=== PATIENT | female | born 1980 | race Caucasian/White ===

== ENCOUNTER 2021-12-04 21:16 | Emergency (ER) | payer OTHER ==
[2021-12-04 21:23] VITALS: BP 119/84; PULSE 120; TEMP 98.8; BMI 25.2
[2021-12-04] MEDS ORDERED: KETOROLAC TROMETHAMINE 15 MG/ML VIAL IVPUSH ONE (21:55)
[2021-12-04] MEDS ORDERED: KETOROLAC TROMETHAMINE 15 MG/ML VIAL ONE (22:13)
[2021-12-04 22:28] LABS: BASO % 0.4 % (0-2.0); HEMATOCRIT 32.1 % (32.4-45.2); HEMOGLOBIN 11.1 GM/dL (10.7-15.3); LYMPH % 12.4 % (8-40); MCH 27.8 pg (25.7-33.7); MCHC 34.5 g/dl (32.0-36.0); MEAN CELL VOLUME 80.6 fl (80-96); MEAN PLT VOLUME 8.1 fl (7.5-11.1); MONO % 7.2 % (3.8-10.2); PLATELET COUNT 171 10^3/uL (134-434); RBC 3.98 M/mm3 (3.60-5.2); RDW 13.8 % (11.6-15.6); WHITE BLOOD COUNT 3.8 K/mm3 (4.0-10.0)
[2021-12-04 22:38] LABS: EPI CELLS >36 /uL (0-25.1); HCG,QUALITATIVE URINE Negative; HYALINE CASTS 3 /uL (0-3.1); URINE APPEARANCE CLOUDY; URINE BACTERIA 1241 /uL (0-1359); URINE BILIRUBIN NEGATIVE (NEGATIVE); URINE COLOR YELLOW; URINE GLUCOSE (UA) NEGATIVE (NEGATIVE); URINE KETONE TRACE (NEGATIVE); URINE LEUK ESTERASE TRACE (NEGATIVE); URINE NITRITE NEGATIVE (NEGATIVE); URINE PROTEIN NEGATIVE (NEGATIVE); URINE RBC 17 /uL (0-23.9); URINE UROBILINOGEN 0.2 mg/dL (0.2-1.0); URINE WBC 43 /uL (0-25.8)
[2021-12-04 22:51] LABS: ALBUMIN 3.7 g/dl (3.4-5.0); BLOOD UREA NITROGEN 8.4 mg/dL (7-18); CALCIUM 8.4 mg/dL (8.5-10.1)
[2021-12-04 22:54] LABS: CREATININE 0.9 mg/dL (0.55-1.3)
[2021-12-04 22:56] LABS: BILIRUBIN,TOTAL 0.6 mg/dL (0.2-1); TOT PROT 7.8 g/dl (6.4-8.2)
[2021-12-04] MEDS ORDERED: POTASSIUM CHLORIDE TABS 20 MEQ TABLET.ER (FP) PO ONE ×2 (22:57→23:26)
== END 2021-12-05 02:07 | disposition home or self-care (01) ==
LOC: JER 21:16
PROC: 3E0333Z Introduction of Anti-inflammatory into Peripheral Vein, Percutaneous Approach (ICD-10-PCS; principal; 2021-12-04)
DX: R10.9 Unspecified abdominal pain (principal)
CPT/HCPCS: 36415; 76775-TC; 76830-TC; 80053; 81003; 84703; 85025; 93005; 93010; 96374; 99284-25

== ENCOUNTER 2022-05-05 11:11 | Emergency (ER) | payer OTHER ==
[2022-05-05 11:22] VITALS: BMI 25.7
[2022-05-05 13:17] LABS: VENOUS BASE EXCESS -1.1 mmol/L (-2-2); VENOUS O2 SATURATION 46.9 % (70-80); VENOUS PH 7.406 (7.310-7.410)
[2022-05-05 13:26] LABS: MCH 26.1 pg (25.7-33.7); MCHC 34.3 g/dl (32.0-36.0); MEAN CELL VOLUME 76.1 fl (80-96); MEAN PLT VOLUME 7.8 fl (7.5-11.1); PLATELET COUNT 223 10^3/uL (134-434); RBC 4.21 M/mm3 (3.60-5.2); WHITE BLOOD COUNT 4.8 K/mm3 (4.0-10.0)
[2022-05-05 13:41] LABS: INR 1.28 (0.83-1.09); PROTHROMBIN TIME (PATIENT) 14.8 SEC (9.7-13.0)
[2022-05-05 13:44] LABS: ACTIVATED PTT 32.5 SECONDS (25.2-36.5)
[2022-05-05 13:48] LABS: CHLORIDE 108 mmol/L (98-107); SODIUM 139 mmol/L (136-145)
[2022-05-05 13:50] LABS: ALBUMIN 3.6 g/dl (3.4-5.0); CALCIUM 8.7 mg/dL (8.5-10.1)
[2022-05-05 13:51] LABS: ANION GAP 4 MMOL/L (8-16); BLOOD UREA NITROGEN 12.6 mg/dL (7-18); CO2 27 mmol/L (21-32); GLUCOSE,RANDOM 89 mg/dL (74-106)
[2022-05-05 13:54] LABS: CREATININE 0.8 mg/dL (0.55-1.3); SGOT/AST 13 U/L (15-37); SGPT/ALT 21 U/L (13-61)
[2022-05-05 13:55] LABS: BILIRUBIN,TOTAL 0.4 mg/dL (0.2-1); TOT PROT 7.6 g/dl (6.4-8.2)
[2022-05-05 13:57] LABS: ALK PHOS 47 U/L (45-117)
[2022-05-05 15:59] VITALS: BP 120/67; PULSE 84; TEMP 98.4
== END 2022-05-05 15:55 | disposition home or self-care (01) ==
LOC: JER 11:11
DX: U07.1 COVID-19 (principal); R06.02 Shortness of breath
CPT/HCPCS: 36415; 71045-TC-FY; 80053; 82803; 84484; 84703; 85027; 85379; 85610; 85730; 93005; 93010; 99285-25

== ENCOUNTER 2024-05-28 02:03 | Emergency (ER) | payer BC, OTHER ==
[2024-05-28 02:17] VITALS: BP 113/78; PULSE 68; RESP 18; TEMP 98.6; BMI 26.1
[2024-05-28] MEDS: ACETAMINOPHEN 500 MG TABLET (FP) PO ONE (03:22)
[2024-05-28] MEDS ORDERED: ONDANSETRON *ODT* 4 MG TABLET ONE (03:23)
[2024-05-28] MEDS: ONDANSETRON *ODT* 4 MG TABLET SL ONE (03:33)
[2024-05-28 03:44] LABS: EPI CELLS 20 /uL (0-25.1); HYALINE CASTS 0 /uL (0-3.1); URINE APPEARANCE CLEAR; URINE BACTERIA 345 /uL (0-1359); URINE BILIRUBIN NEGATIVE (NEGATIVE); URINE COLOR YELLOW; URINE GLUCOSE (UA) NEGATIVE (NEGATIVE); URINE KETONE NEGATIVE (NEGATIVE); URINE LEUK ESTERASE TRACE (NEGATIVE); URINE NITRITE NEGATIVE (NEGATIVE); URINE PROTEIN NEGATIVE (NEGATIVE); URINE RBC 6 /uL (0-23.9); URINE UROBILINOGEN 0.2 mg/dL (0.2-1.0); URINE WBC 22 /uL (0-25.8)
[2024-05-28] MEDS ORDERED: CEPHALEXIN MONOHYDRATE 500 MG CAPSULE (UD) ONE (04:03)
[2024-05-28] MEDS: CEPHALEXIN MONOHYDRATE 500 MG CAPSULE (UD) PO ONE (04:05)
== END 2024-05-28 04:15 | disposition home or self-care (01) ==
LOC: JER 02:03
DX: N39.0 Urinary tract infection, site not specified (principal); R30.0 Dysuria; R35.0 Frequency of micturition; R10.2 Pelvic and perineal pain; R11.0 Nausea; R53.1 Weakness
CPT/HCPCS: 81003; 84703; 87086; 99283-25

== ENCOUNTER 2024-09-11 11:00 | Day surgery (SDC) | payer BC ==
[2024-09-11] MEDS: FERRIC CARBOXYMALTOSE 750 MG in SODIUM CHLORIDE 250 ML IVPB SCH (11:34)
[2024-09-11 13:19] VITALS: BP 132/80; PULSE 80; RESP 18; TEMP 98
== END 2024-09-11 13:27 | disposition home or self-care (01) ==
LOC: FINFUSION 11:00 → FM/S 11:02 → FINFUSION 13:27
PROVIDERS: ATTEND Family Medicine
PROC: 3E033GC Introduction of Other Therapeutic Substance into Peripheral Vein, Percutaneous Approach (ICD-10-PCS; principal; 2024-09-11)
DX: D50.9 Iron deficiency anemia, unspecified (principal)
CPT/HCPCS: 96365; J1439

== ENCOUNTER 2024-09-18 11:32 | Day surgery (SDC) | payer BC ==
[2024-09-18] MEDS: FERRIC CARBOXYMALTOSE 750 MG in SODIUM CHLORIDE 250 ML IVPB SCH (12:08)
[2024-09-18 13:54] VITALS: BP 112/70; PULSE 80; RESP 18; TEMP 98.8
== END 2024-09-18 13:54 | disposition home or self-care (01) ==
LOC: FINFUSION 11:32 → FM/S 11:33 → FINFUSION 13:54
PROVIDERS: ATTEND Family Medicine
PROC: 3E033GC Introduction of Other Therapeutic Substance into Peripheral Vein, Percutaneous Approach (ICD-10-PCS; principal; 2024-09-18)
DX: D50.9 Iron deficiency anemia, unspecified (principal)
CPT/HCPCS: 96365; J1439